=== PATIENT | male | born 1935 | race Caucasian/White ===

== ENCOUNTER → 2024-11-27 14:36 | Outpatient (CLI) | payer MEDICARE, OTHER, SELFPAY | PROVIDERS: Family Provider Physician Assistant Medical; PCP Physician Assistant Medical; Referring Provider Emergency Medicine; Visit Provider Emergency Medicine | DX: G56.03 Carpal tunnel syndrome, bilateral upper limbs (principal) | CPT/HCPCS: 95885; 95886; 95912 ==